=== PATIENT | female | born 1980 | race African-American/Black ===

== ENCOUNTER 2024-03-03 15:46 | Inpatient (IN) | payer MEDICAID, OTHER ==
[~2024-03-03] VITALS: Ht 162.6 cm; Wt 89.8 kg
[2024-03-03 19:17] LABS: HEMOGLOBIN 12.8 g/dL (12.0-16.0); LYMPHOCYTES # (AUTO) 1.1 K/uL (1.0-4.8); MEAN CORPUSCULAR HEMOGLOBIN 26.9 pg (26.0-34.0); MEAN CORPUSCULAR HGB CONC 31.5 G/dL (31.0-37.0); WHITE BLOOD COUNT (AUTO) 14.4 K/uL (4.5-11.0)
[2024-03-03 19:21] LABS: BASOPHILS % (AUTO) 0.5 % (0.0-2.0); EOSINOPHILS % (AUTO) 2.7 % (1.0-6.0); HEMATOCRIT 40.8 % (36-46); LYMPHOCYTES % (AUTO) 7.4 % (22.0-44.0); MEAN CORPUSCULAR VOLUME 86 fL (80-100); MONOCYTES # (AUTO) 0.7 K/uL (0.1-1.0); MONOCYTES % (AUTO) 4.9 % (2.0-9.0); NEUTROPHILS # (AUTO) 12.2 K/uL (1.8-7.7); NEUTROPHILS % (AUTO) 84.5 % (40.0-70.0); PLATELET COUNT (AUTO) 330 K/uL (150-450); RED BLOOD CELL COUNT(AUTO) 4.76 MIL/uL (4.00-5.20); RED CELL DISTRIBUTION WIDTH 18.8 % (11.5-14.5)
[2024-03-03 19:24] LABS: ANION GAP 9 mmol/L (8-16); CALCIUM, TOTAL 8.6 mg/dL (8.8-10.5); CARBON DIOXIDE 27 mmol/L (22-29); CHLORIDE 104 mmol/L (98-107); CREATININE 0.59 mg/dL (0.60-1.30); GLOMERULAR FILTR. RATE CALC > 60 mL/min (>60); GLUCOSE,RANDOM 69 mg/dL (70-110); POTASSIUM 3.3 mmol/L (3.5-5.1); SODIUM SERUM 140 mmol/L (136-145); UREA NITROGEN, BLOOD 15 mg/dL (7-18)
[2024-03-03 19:31] LABS: ALANINE AMINOTRANSFERASE 17 U/L (12-78); ALBUMIN 3.5 g/dL (3.4-5.0); ALCOHOL, BLOOD (SERUM) < 3 mg/dL (0-10); ALKALINE PHOSPHATASE 96 U/L (46-116); ASPARTATE AMINOTRANSFERASE 24 U/L (15-37); BILIRUBIN,TOTAL 0.5 mg/dL (0.1-1.0); TOTAL PROTEIN, SERUM 7.5 g/dL (6.4-8.2)
[2024-03-03 19:35] VITALS: O2SAT 99
[2024-03-03] MEDS ORDERED: DIPHENOXYLATE/ATROP 2.5-0.025 MG TABLET PO ONE (19:45)
[2024-03-03] MEDS: DIPHENOXYLATE/ATROP 2.5-0.025 MG TABLET PO ONE (20:34)
[2024-03-03 20:35] LABS: COVID AG,FIA SOURCE NASAL SWAB
[2024-03-03] MEDS: POTASSIUM CHLORIDE 20 MEQ ER TABLET PO ONE (20:53)
[2024-03-03] MEDS: ONDANSETRON 4 MG RAPDIS TABLET PO ONE (20:53)
[2024-03-03 20:57] LABS: SARS-COV2 (COVID) ANTIGEN,FIA Negative (Negative)
[2024-03-03 23:30] VITALS: BP 146/82; PULSE 75; RESP 18; TEMP 97.5; O2SAT 98
[2024-03-04] MEDS ORDERED: OMEPRAZOLE 20 MG CAPSULE PO PRN (07:30)
[2024-03-04] MEDS ORDERED: PETROLATUM,WHITE 28 GM JELLY TP PRN (07:30)
[2024-03-04] MEDS ORDERED: BACITRACIN 28 GM OINTMENT TP PRN (07:30)
[2024-03-04] MEDS ORDERED: BENZOCAINE/MENTHOL LOZENGE PO PRN (07:30)
[2024-03-04] MEDS ORDERED: ACETAMINOPHEN 325 MG TABLET PO PRN (07:30)
[2024-03-04] MEDS ORDERED: ALBUTEROL SULFATE HFA 90 MCG/PUFF 8 GM INHALER IH PRN (07:30)
[2024-03-04] MEDS ORDERED: CloNIDine HCL 0.1 MG TABLET PO PRN (07:30)
[2024-03-04] MEDS ORDERED: ONDANSETRON 4 MG TABLET PO PRN (07:30)
[2024-03-04] MEDS ORDERED: MAGNESIUM HYDROXIDE SUSPENSION 30 ML UDCUP PO PRN (07:30)
[2024-03-04 08:27] VITALS: RESP 16
[2024-03-04] MEDS: LORazepam 2 MG TABLET PO PRN (10:17)
[2024-03-04] MEDS: IBUPROFEN 600 MG TABLET PO PRN (16:03)
[2024-03-04 20:15] VITALS: RESP 18
[2024-03-04] MEDS: ZOLPIDEM TARTRATE 10 MG TABLET PO PRN (20:21)
[2024-03-04] MEDS: QUEtiapine FUMARATE 300 MG TABLET PO SCH (20:21)
[2024-03-04] MEDS ORDERED: INFLUENZA VIRUS VACCINE TVS (6MO+) 2024-25/PF 45 MCG/0.5 ML SYRINGE IM. ONE (23:45)
[2024-03-05 08:07] VITALS: BP 100/60; PULSE 90; RESP 17; TEMP 97.3; O2SAT 97
[2024-03-05] MEDS: LITHIUM CARBONATE 300 MG CAPSULE PO SCH (08:23)
[2024-03-05] MEDS: DIVALPROEX SODIUM 500 MG DR TABLET PO SCH (08:23)
[2024-03-05 17:41] VITALS: RESP 17
[2024-03-05 21:09] VITALS: BP 152/88; PULSE 87; RESP 18; TEMP 97.8; O2SAT 96
[2024-03-06 08:07] VITALS: RESP 16
[2024-03-06 16:13] VITALS: BP 148/82; PULSE 90; RESP 16; TEMP 97.6; O2SAT 97
[2024-03-06 22:47] VITALS: RESP 16
[2024-03-07 08:06] VITALS: BP 118/73; PULSE 99; RESP 18; TEMP 98; O2SAT 98
[2024-03-07] MEDS: LOPERAMIDE HCL 2 MG CAPSULE PO PRN (16:03)
[2024-03-07] MEDS: GABAPENTIN 300 MG CAPSULE PO SCH (17:22)
[2024-03-07 20:11] VITALS: BP 165/92; PULSE 95; RESP 16; O2SAT 97
[2024-03-08 08:17] VITALS: RESP 16
[2024-03-08 09:15] LABS: VALPROIC ACID 62 mcg/mL (50-100)
[2024-03-08 09:29] LABS: LITHIUM < 0.20 mmol/L (0.60-1.20)
[2024-03-08] MEDS: MAG HYDROX/ALUMINUM HYD/SIMETH ES 30 ML SUSPENSION UDCUP PO PRN (09:35)
[2024-03-08] MEDS: HALOPERIDOL 5 MG TABLET PO PRN (15:17)
[2024-03-08 21:53] VITALS: BP 106/65; PULSE 96; RESP 16; TEMP 98; O2SAT 95
[2024-03-09 08:38] VITALS: BP 113/68; PULSE 90; RESP 17; TEMP 97.5; O2SAT 100
[2024-03-09] MEDS: DOCUSATE SODIUM 100 MG CAPSULE PO PRN (15:46)
[2024-03-09 20:23] VITALS: BP 121/71; PULSE 91; RESP 14; TEMP 97.9; O2SAT 97
[2024-03-09 21:31] VITALS: BP 121/71; PULSE 91; RESP 14; TEMP 97.9; O2SAT 97
[2024-03-10 08:24] VITALS: RESP 18
[2024-03-10 20:20] VITALS: BP 127/78; PULSE 90; RESP 17; TEMP 97.8; O2SAT 95
[2024-03-11 08:07] VITALS: RESP 17
[2024-03-11 08:09] VITALS: RESP 18
[2024-03-11 09:07] VITALS: RESP 18
[2024-03-11] MEDS ORDERED: LITH300C3 PO (14:16)
[2024-03-11] MEDS ORDERED: GABA-1181 PO (14:16)
[2024-03-11] MEDS ORDERED: DIVA-112 PO (14:17)
[2024-03-11] MEDS ORDERED: QUET300T2 PO (14:17)
== END 2024-03-11 16:50 | disposition home or self-care (01) | DRG 750 ==
LOC: EMS 15:46 → B3A 23:39
PROVIDERS: ADMIT Psychiatry & Neurology Psychiatry; ATTEND Psychiatry & Neurology Psychiatry
DX: F25.9 Schizoaffective disorder, unspecified (principal); R45.851 Suicidal ideations; E66.9 Obesity, unspecified; F32.9 Major depressive disorder, single episode, unspecified; Z20.822 Contact with and (suspected) exposure to COVID-19; G47.00 Insomnia, unspecified; F41.9 Anxiety disorder, unspecified; Z59.00 Homelessness unspecified; Z68.34 Body mass index [BMI] 34.0-34.9, adult; Z79.899 Other long term (current) drug therapy
CPT/HCPCS: 80048; 80076; 80164; 80178; 84132; 85025; 99285; G0480